=== PATIENT | male | born 2000 | race African-American/Black ===

== ENCOUNTER 2019-04-05 17:44 | Emergency (ER) | payer OTHER ==
[~2019-04-05] VITALS: Ht 188 cm; Wt 72.7 kg
[2019-04-05 17:49] VITALS: Ht 188 cm; Wt 72.7 kg
[2019-04-05 18:21] LABS: BASOPHILS 0.7 % (0-2); EOSINOPHILS 1.6 % (0-7); HEMOGLOBIN 15.9 g/dL (13.5-17.5); LYMPHOCYTES 59.2 % (15-50); MCH 27.7 pg (26.0-34.0); MCHC 36.1 g/dL (31.0-37.0); MCV 76.7 fL (80.0-100.0); MEAN PLATELET VOLUME 9.8 fL (7.4-10.4); NEUTROPHILS 31.5 % (40-80); PLATELET COUNT 229 10x3/uL (130-400); RBC 5.74 10x6/uL (4.20-6.10); RDW 13.4 % (11.5-14.5); WBC 4.3 10x3/uL (4.8-10.8)
[2019-04-05 18:50] LABS: CALC OSMOLALITY 281 mosm/kg (275-300); CALCIUM 9.2 mg/dL (8.5-10.1); CARBON DIOXIDE 27.9 mmol/L (21.0-32.0); CHLORIDE - SERUM 106 mmol/L (98-107); GLUCOSE 82 mg/dL (74-106); POTASSIUM - SERUM 3.7 mmol/L (3.5-5.1); SODIUM 142 mmol/L (136-145); UREA NITROGEN 12 mg/dL (7-18); eGFR NON AFRICAN AMERICAN > 90 mL/min (90-120)
[2019-04-05 18:57] LABS: ALBUMIN 4.1 g/dL (3.4-5.0); ALKALINE PHOSPHATASE 95 U/L (46-116); ALT (SGPT) 23 U/L (10-68); BILIRUBIN - TOTAL 1.46 mg/dL (0.2-1.3); PROTEIN - SERUM 7.7 g/dL (6.4-8.2)
[2019-04-05 20:50] VITALS: BP 142/84
== END 2019-04-05 20:50 | disposition home or self-care (01) ==
LOC: D.ER 17:44
PROVIDERS: Emergency Medicine
DX: K92.1 Melena (principal)

== ENCOUNTER 2019-12-24 12:56 | Emergency (ER) | payer OTHER ==
[~2019-12-24] VITALS: Ht 188 cm; Wt 77.3 kg
[2019-12-24 13:09] VITALS: Ht 188 cm; Wt 77.3 kg
[2019-12-24 14:41] LABS: BILIRUBIN NEGATIVE (NEGATIVE); KETONE NEGATIVE (NEGATIVE); NITRITE NEGATIVE (NEGATIVE); UROBILINOGEN 4 mg/dL (< 2)
[2019-12-24 14:42] LABS: BACTERIA FEW HPF (NONE SEEN); EPITHELIAL CELLS 0-5 /hpf (0-5); WHITE CELLS - URINE 25-50 HPF (0-1)
[2019-12-24 15:17] VITALS: BP 118/62
== END 2019-12-24 15:18 | disposition home or self-care (01) ==
LOC: D.ER 12:56
PROVIDERS: Family Medicine
DX: R36.9 Urethral discharge, unspecified (principal); Z20.2 Contact with and (suspected) exposure to infections with a predominantly sexual mode of transmission; R30.0 Dysuria